=== PATIENT | male | born 1970 | race Caucasian/White ===

== ENCOUNTER 2022-06-18 12:35 | Day surgery (SDC) | payer OTHER, SELFPAY ==
[2022-06-09 13:46] VITALS: BMI 31.5
--- NOTE | 2022-06-17 14:09 | WPDANESEPPF ---
Anes - Initial Pre Proc Eval Procedure: Operation Date: 06/18/22 14:00 Proposed Procedures p Screening Colonoscopy - Reymundo Morton MD Date/Time: 06/17/22 14:09 Surgeon: Reymundo Morton MD Pre Op Diagnosis: neoplasm screening Patient Data Age: 52 Gender: M Height: 1.65 m Weight: 86 kg Allergies Allergy/AdvReac Type Severity Reaction Status Date / Time No Known Allergies Allergy Verified 06/09/22 13:44 Home Medications Medication Instructions Recorded Confirmed Type adalimumab 40 mg/0.8 mL See Rx Instructions subcut .COMPLEX 07/10/20 06/09/22 History subcutaneous syringe kit (Humira) cetirizine 10 mg disintegrating 10 mg PO DAILY 07/10/20 06/09/22 History tablet citalopram 40 mg tablet (Celexa) 40 mg PO DAILY #90 tabs 02/21/22 06/09/22 Rx sodium sul 1.479 gram-potas ch See Rx Instructions PO PER PKG DIR 04/04/22 Rx 0.188 gram-magnes sul 0.225 gram #24 tabs tablet (Sutab) Patient hx anesthesia problems: none Family hx anesthesia problems: none Results Review: All pre-operative results and documents have been reviewed as part of the pre-operative evaluation. [facility] Past Medical History Medical History (Updated 06/18/22 @ 13:08 by Rodolfo Cohen DO) Arthritis Psoriatic arthritis Sleep apnea in adult Surgical History Surgical History Basal cell carcinoma Family History Family History Sibling Hypertension Father Heart disease Mother Heart disease COPD (chronic obstructive pulmonary disease) Social History Social History Smoking status: Never smoker Alcohol intake: current Substance use type: does not use Living arrangements: with family Spiritual care concerns: No Anes - Eval Final PreProcedure Day of Procedure 06/17/22 14:09 Patient weight: obese Heart: regular rate and rhythm Lungs: clear to auscultation Airway: Mallampati scale class II Neurological: alert and oriented Last oral intake: >/= 8 hours ASA classification: III Emergent: no Anesthetic plan: proceed Anesthesia type and monitoring: general GIVS and standard monitoring Results Review: All pre-operative results and documents have been reviewed as part of the pre-operative evaluation. Informed Consent: The patient's anesthetic plan and its attendant risks and benefits were discussed with the patient/family/POA. Questions were solicited and answers provided to the satisfaction of the patient/family/POA.
--- NOTE | 2022-06-17 16:14 | PM.HPGS ---
History of Present Illness History of Present Illness Consent: Risks, benefits, and alternatives have been discussed and questions answered. Patient agrees to proceed with procedure. Chief complaint: neoplasm screening Narrative: Josias He is a 52 year old male Referred for colon cancer screening. Review of Systems Review of Systems: All systems reviewed & are unremarkable except as noted in HPI and below PMFSH Past Medical History Medical History Arthritis Psoriatic arthritis Sleep apnea in adult Surgical History Surgical History Basal cell carcinoma Family History Family History Sibling Hypertension Father Heart disease Mother Heart disease COPD (chronic obstructive pulmonary disease) Social History Social History Smoking status: Never smoker Alcohol intake: current Substance use type: does not use Living arrangements: with family Spiritual care concerns: No Meds Home Medications and Allergies Home Medications Medication Instructions Recorded Confirmed Type adalimumab 40 mg/0.8 mL See Rx Instructions subcut .COMPLEX 07/10/20 06/18/22 History subcutaneous syringe kit (Humira) cetirizine 10 mg disintegrating 10 mg PO DAILY 07/10/20 06/18/22 History tablet citalopram 40 mg tablet (Celexa) 40 mg PO DAILY #90 tabs 02/21/22 06/18/22 Rx sodium sul 1.479 gram-potas ch See Rx Instructions PO PER PKG DIR 04/04/22 06/18/22 Rx 0.188 gram-magnes sul 0.225 gram #24 tabs tablet (Sutab) Allergies Allergy/AdvReac Type Severity Reaction Status Date / Time No Known Allergies Allergy Verified 06/18/22 13:12 Exam Resp: Auscultation: clear to auscultation bilaterally Cardio: Rate: regular rate Rhythm: regular rhythm GI: GI Palp: Yes Soft to palpation and No Tenderness to palpation present (GI) Assessment and Plan Assessment and plan (1) Colon cancer screening: Code(s): Z12.11 - Encounter for screening for malignant neoplasm of colon Status: Acute Assessment and Plan: Colonoscopy with possible biopsy or polypectomy or cautery or injection of substances.
[2022-06-18 12:50] VITALS: BP 154/84; PULSE 73; RESP 18; TEMP 36.4; O2SAT 99
[2022-06-18] MEDS: LACTATED RINGERS 1,000 ML 150 ML IV CONT (13:05)
[2022-06-18 13:14] VITALS: BMI 33.5
[2022-06-18 14:02] VITALS: BP 139/73; PULSE 62; RESP 14; O2SAT 99
[2022-06-18 14:12] VITALS: BP 151/82; PULSE 68; RESP 14; O2SAT 99
[2022-06-18 14:22] VITALS: BP 144/95; PULSE 56; RESP 13; O2SAT 100
--- NOTE | 2022-06-18 14:31 | WPDANESPN ---
Anes - Prog Note Post-Op Date/Time: 06/18/22 14:31 Cardiovascular status: normal Respiratory status: normal Airway patency: baseline Mental status: baseline Post-Op hydration status: normal Vital Signs: Last Vital Signs Temp 36.4 C L 06/18/22 12:50 Pulse 56 L 06/18/22 14:22 Resp 13 06/18/22 14:22 BP 144/95 H 06/18/22 14:22 Pulse Ox 100 06/18/22 14:22 O2 Del Method Room Air 06/18/22 14:22 Pain Score (VAS): 0 I/O: Intake & Output 06/17/22 06/18/22 06/18/22 23:59 07:59 15:59 Intake Total 400 Balance 400 Post-procedural complaints: none Patient Feedback: Patient satisfied with anesthetic care. Other Findings: Patient vital signs back to baseline. Patient denies nausea and vomiting. Patient's pain under control. Patient OK for discharge.
== END 2022-06-18 14:48 | disposition home or self-care (01) ==
PROVIDERS: PCP Internal Medicine; Visit Provider Internal Medicine Gastroenterology
PROC: 0DJD8ZZ Inspection of Lower Intestinal Tract, Via Natural or Artificial Opening Endoscopic (ICD-10-PCS; CPT 45378; principal; 2022-06-18 14:00)
DX: Z12.11 Encounter for screening for malignant neoplasm of colon (principal)
CPT/HCPCS: 45378